=== PATIENT | female | born 1935 | race Caucasian/White ===

== ENCOUNTER 2023-01-10 17:23 | Emergency (ER) | payer MEDICARE, OTHER, SELFPAY ==
[2023-01-10] VITALS (12 sets, daily range): BP systolic 114–155; BP diastolic 46–99; PULSE 87–103; RESP 17–23; TEMP 37–37.9; O2SAT 95–99
--- NOTE | ~2023-01-10 | XR_ITS ---
EXAMINATION: XR chest 2V DATE: 01/10/2023 17:56 INDICATION: Fever and weakness TECHNIQUE: frontal and lateral views of the chest were obtained. COMPARISON: None FINDINGS: Focal airspace opacity in the left midlung zone in the left upper lobe abutting the major fissure whi ch concerning for pneumonia. No other airspace opacities, pulmonary edema, pleural effusion or pneumo thorax. The cardiomediastinal silhouette is normal. Mild to moderate thoracic spondylosis. IMPRESSION: 1. Left upper lobe pneumonia. Reviewed, dictated and finalized at location A. OMER SUPPORT ASSOCIATE
--- NOTE | 2023-01-10 17:29 | ECG_ITS ---
Measurements Intervals [place] Rate: 96 P: 68 FL: 161 QRS: -45 QRSD: 109 T: 79 QT: 323 QTc: 410 Interpretive Statements SINUS RHYTHM ATRIAL COUPLET LEFT ANTERIOR FASCICULAR BLOCK CANNOT RULE OUT SEPTAL INFARCT, AGE INDETERMINATE ABNORMAL ECG NO PREVIOUS ECG AVAILABLE FOR COMPARISON Electronically Signed On 01-10-2023 18:58:58 STRATEGIC INTELLIGENCE OFFICER by Baltazar Ga D.O.
[2023-01-10 17:52] LABS: Basophils Percent Auto 0.3 % (0.2-1.2); Eosinophils Percent Auto 0.1 % (0-4.4); Hematocrit 34.9 % (37.0-47.0); Hemoglobin 11.1 g/dL (12.0-15.0); Immature Granulocyte Percent A 0.7 % (0-0.5); Lymphocytes Absolute Auto 2.11 K/mm3 (0.9-3.2); Mean Corpuscular HGB Conc 31.8 g/dl (32-36); Mean Corpuscular Hemoglobin 29.7 pg (26-34); Mean Corpuscular Volume 93.3 fl (80-100); Mean Platelet Volume 9.3 fl (7.4-10.4); Monocytes Percent Auto 6.8 % (2.6-8.5); Neutrophils Absolute Auto 10.9 K/mm3 (1.3-6.7); Neutrophils Percent Auto 77.1 % (45.5-73.1); Platelet Count Result 292 k/mm3 (150-375); Red Blood Count 3.74 M/mm3 (4.2-5.4); Red Cell Distribution Width 14.1 % (11.5-14.5); White Blood Count 14.1 K/mm3 (4.5-10.0)
[2023-01-10 18:02] LABS: Alanine Aminotransferase 24 U/L (6-35); Alkaline Phosphatase 90 U/L (38-126); Anion Gap 9 mmol/L (8-16); Aspartate Amino Transferase 32 U/L (14-36); Bilirubin,Total 1.3 mg/dL (0.2-1.3); Blood Urea Nitrogen 15 mg/dL (7-17); Calcium 8.9 mg/dL (8.4-10.2); Carbon Dioxide 26 mmol/L (22-30); Chloride 100 mmol/L (98-107); Estimated CRCL calculation 35 ml/min; Estimated Glomerular Filt Rate > 60; Glucose 108 mg/dL (65-110); Potassium 4.1 mmol/L (3.4-5.0); Sodium 135 mmol/L (137-145)
--- NOTE | 2023-01-10 19:10 | ECG_ITS ---
Measurements Intervals [place] Rate: 100 P: 72 [place]: 158 QRS: -46 QRSD: 111 T: 82 QT: 328 QTc: 424 Interpretive Statements SINUS TACHYCARDIA VENTRICULAR PREMATURE COMPLEXES INCOMPLETE RIGHT BUNDLE BRANCH BLOCK LEFT ANTERIOR FASCICULAR BLOCK CANNOT RULE OUT SEPTAL INFARCT, AGE INDETERMINATE BASELINE ARTIFACT- I, II, AVR ABNORMAL ECG COMPARED TO ECG 01/10/2023 17:39:43 SINUS TACHYCARDIA NOW PRESENT Electronically Signed On 01-11-2023 8:27:24 POSTDOCTORAL FELLOW by Baltazar Ga D.O.
[2023-01-10 20:25] LABS: Appearance Urine Cloudy (Clear); Bacteria Urine 4+ /hpf; Bilirubin Urine Negative (Negative); Blood Urine 1+ (Negative); Color Urine Yellow (Yellow); Glucose Urine UA Negative (Negative); Ketones Urine Trace mg/dL (Negative); Leukocyte Esterase Ur 1+ LEU/UL (Negative); Nitrate Urine Negative (Negative); Non Pathogenic Casts 0-2; Protein Urine 1+ mg/dL (Negative); Specific Grav Ur 1.021 (1.001-1.035); Squamous Epithelial Cell Urine Occasional /hpf (Few); WBC Urine 21-50 /hpf; pH Urine 6.5 (5.0-9.0)
[2023-01-10 20:30] LABS: Add Urine Microscopic? YES
[2023-01-10 22:21] LABS: Influenza A QL RT-PCR Negative (Negative); Influenza B QL RT-PCR Negative (Negative); SARS-CoV-2 RNA PCR Negative (Negative)
--- NOTE | 2023-01-10 22:23 | ED.GENADULT ---
HPI - General Adult General Chief complaint: Weakness Stated complaint: weak, shaky, swollen ankles Time Seen by Provider: 01/10/23 20:53 History of Present Illness HPI narrative: Patient is an 87-year-old female who presents to the emergency department this afternoon accompanied by family members due to generalized weakness. Patient also states that she has been having some URI symptoms, including a cough, shortness of breath, and a sore throat. Patient also admits that she has been having a low grade fever at home, she denies any exposure to sick contacts or COVID as far as she is aware. Patient also denies any urinary symptoms including dysuria or hematuria. Patient also denies any chest pain, nausea, vomiting, abdominal pain, constipation, diarrhea, melena or hematochezia. She also denies any headaches, dizziness, lightheadedness, blurry visions, focal weakness, numbness and or tingling. There are no other modifying, alleviating, or precipitating factors at this time. Related Data Allergies Allergy/AdvReac Type Severity Reaction Status Date / Time No Known Allergies Allergy Verified 01/10/23 17:24 Review of Systems Review of Systems: All systems are reviewed and are negative unless stated otherwise in the HPI. Exam Narrative: General: Alert, awake, afebrile, in no acute distress. HEENT: PERRL, no rhinorrhea, no post nasal drip, oropharynx clear. Neck: Trachea midline, no JVD, no lymphadenopathy. Cardiovascular: Tachycardic with regular rhythm, no murmurs, rubs or gallops, no peripheral edema. Respiratory: Clear to auscultation bilaterally, no tachypnea, no wheezing, no rhonchi, no rubs, no respiratory distress. Abdomen: Soft, nontender, nondistended, no rebound, no guarding, no peritoneal signs. Musculoskeletal: No joint swelling or deformity, normal muscle tone. Skin: No rashes or petechia, no signs of infection. Psychiatric: Alert and oriented, normal behavior and judgment for situation. Neurological: Alert and oriented to person, place, and time. Follows all commands. No focal deficits, speech is clear and fluent. Course Vital Signs Vital signs: Vital Signs Temperature 100.2 F H 01/10/23 17:27 Pulse Rate 103 H 01/10/23 17:27 Respiratory Rate 20 01/10/23 17:27 Blood Pressure 155/59 H 01/10/23 17:27 Pulse Oximetry 99 01/10/23 17:27 Oxygen Delivery Room Air 01/10/23 17:27 Temperature 98.6 F 01/10/23 20:52 Pulse Rate 87 01/10/23 23:02 Respiratory Rate 20 01/10/23 23:02 Blood Pressure 133/67 01/10/23 23:02 Pulse Oximetry 98 01/10/23 23:02 Oxygen Delivery Room Air 01/10/23 20:52 Medical Decision Making MDM Narrative Medical decision making narrative: The patient was evaluated by myself in the emergency department. History is obtained from patient who is an independent historian and physical exam was performed. External medical records were reviewed at this time. IV was established and pertinent tests were ordered. EKG was obtained which revealed SR at a rate of 96bpm. No ST changes, T wave inversions or evidence concerning of acute ischemia. EKG was independently interpreted by me and is currently pending official cardiology read. Laboratory results obtained revealing No acute process. Imaging studies obtained included a CXR which was independently interpreted by me revealing a ALPHONSE pneumonia, which is pending final radiology interpretation. Differential diagnosis considerations include pneumonia, COVID infection, viral syndrome, and urinary tract infection. I have evaluated and discussed social determinants of health with the patient that could potentially impact subsequent diagnosis and treatment plans. On repeat assessment of the patient, reevaluation revealed that the patient is doing well and is in no acute distress. Patient symptoms have improved since she arrived to our emergency department. Repeat vital signs were all reviewed and noted to be sta
== END 2023-01-10 23:11 | disposition home or self-care (01) ==
PROVIDERS: Student in an Organized Health Care Education/Training Program; Emergency Provider Emergency Medicine
DX: J18.1 Lobar pneumonia, unspecified organism (principal); N39.0 Urinary tract infection, site not specified; Z20.822 Contact with and (suspected) exposure to COVID-19; R94.31 Abnormal electrocardiogram [ECG] [EKG]; R00.8 Other abnormalities of heart beat; I44.4 Left anterior fascicular block
CPT/HCPCS: 36415; 71046; 80053; 81001; 85025; 87077; 87086; 87186; 87636; 93005; 99283

== ENCOUNTER 2023-01-29 15:05 | Emergency (ER) | payer MEDICARE, OTHER, SELFPAY ==
[2023-01-29] VITALS (20 sets, daily range): BP systolic 108–163; BP diastolic 58–85; PULSE 78–120; RESP 12–23; TEMP 36.5–36.8; O2SAT 96–100
--- NOTE | ~2023-01-29 | CT_ITS ---
EXAMINATION: CT abdomen pelvis w con DATE: 01/29/2023 17:42 INDICATION: RUQ/epigastric pain, N/V TECHNIQUE: Computed tomography (CT) of the abdomen and pelvis was performed with 100 mL Omnipaque-350 intravenous contrast. Automated exposure control and iterative reconstruction technique were employe d. The dose-length product was 297.85 mGy-cm. COMPARISON: None. FINDINGS: Lower thorax: Coronary artery calcifications. Small volume pericardial fluid. Senescent changes in th e lungs. Granulomatous calcification. Insert before no small mild distal esophageal and gastric wall edema. Liver: Normal. Biliary/Gallbladder: Gallbladder is normal. No bile duct dilation. Pancreas: No mass or duct dilation. Spleen: Normal. Adrenals:No mass. Kidneys: No suspicious mass, obstructing stone, or hydronephrosis. Simple right lower pole cyst. GI tract: No small or large bowel dilation. Date is not dilated. Mild wall hyperemia. Small volume periappendiceal fluid. Diverticulosis without diverticulitis. Mesentery/Peritoneum: No ascites, mass, or free air. Retroperitoneum: No mass. Atherosclerotic abdominal aortic and/or arterial calcifications. Pelvis: Absent uterus. Incompletely distended urinary bladder. Small volume free pelvic fluid. Soft Tissues: Soft tissues and body wall unremarkable. Bones: No acute osseous finding. IMPRESSION: Small pericardial effusion. Mild esophagitis/gastritis. Nondilated appendix, with mild mucosal hyperemia and small volume periappendiceal fluid, may reflect early acute appendicitis in the appropriate clinical context. Small volume ascites. Reviewed, dictated and finalized at location K. YARD TENDER IMPRESSION: Small pericardial effusion. Mild esophagitis/gastritis. Nondilated appendix, with mild mucosal hyperemia and small volume periappendice al fluid, may reflect early acute appendicitis in the appropriate clinical cont ext. Small volume ascites.
--- NOTE | 2023-01-29 16:40 | ECG_ITS ---
Measurements Intervals [place] Rate: 96 P: 71 MN: 174 QRS: -53 QRSD: 99 T: 77 QT: 336 QTc: 426 Interpretive Statements SINUS RHYTHM PATTERN CONSISTENT WITH PULMONARY DISEASE INCOMPLETE RIGHT BUNDLE BRANCH BLOCK [90+ ms QRS DURATION, TERMINAL R IN V1/V2, 40+ ms S IN I/aVL/V4/V5/V6] LEFT ANTERIOR FASCICULAR BLOCK [QRS AXIS <= -45, QR IN I, RS IN II] COMPARED TO ECG 01/10/2023 19:10:43 THE HEART RATE IS SLOWER Electronically Signed On 01-29-2023 20:23:20 MOTOR LODGE CLERK by Lily Love M.D.
--- NOTE | 2023-01-29 16:40 | ED.ABDPAIN ---
HPI - Abdominal Pain General Chief Complaint: Abdominal Pain <SANYA Latif Last Filed: 01/29/23 16:49> Stated Complaint: ABD PAIN,N/V <SANYA Latif Last Filed: 01/29/23 16:49> Time Seen by Provider: 01/29/23 20:47 <SANYA Latif Last Filed: 01/29/23 16:49> Source: patient <SANYA Latif Last Filed: 01/29/23 16:49> Mode of arrival: EMS <SANYA Latif Last Filed: 01/29/23 16:49> Limitations: no limitations <SANYA Latif Last Filed: 01/29/23 16:49> History of Present Illness HPI narrative: Patient is an 87 y/o female, with PMH of cholelithiasis, who presents to the ED via EMS with report of epigastric abdominal pain. Patient reports pain began on Saturday night and has progressively worsened since then. She developed nausea and vomiting today which prompted her presentation. She notes a large amount of bile-like emesis today. She has not tried anything for pain. Denies current nausea. Denies fevers, chest pain, shortness breath, diarrhea, constipation, urinary complaints. <SANYA Latif Last Filed: 01/29/23 16:49> Related Data Allergies/Adverse Reactions: Allergies Allergy/AdvReac Type Severity Reaction Status Date / Time No Known Allergies Allergy Verified 01/29/23 15:10 <SANYA Latif Last Filed: 01/29/23 16:49> Review of Systems Review of Systems: CONSTITUTIONAL: Denies fever, chills, or sweats. CARDIOVASCULAR: Denies chest pain. RESPIRATORY: Denies dyspnea. GASTROINTESTINAL: See HPI. GENITOURINARY: Denies dysuria or hematuria. MUSCULOSKELETAL: Denies back pain, joint pain, or myalgia. NEUROLOGIC: Denies headache, numbness, or weakness. <SANYA Latif Last Filed: 01/29/23 16:49> All systems reviewed & are unremarkable except as noted in HPI and below <Gillian Pedraza PA-C - Last Filed: 01/29/23 16:49> Exam Narrative: GENERAL: Elderly, frail, non-toxic, in no acute distress. HEAD: Normocephalic, atraumatic. NECK: Supple. No adenopathy, no masses. RESPIRATORY: Airway patent, respirations nonlabored. Clear to auscultation bilaterally, no rales, rhonchi, wheezing. CARDIOVASCULAR: Regular rate and rhythm without murmurs, rubs, or gallops. Radial pulses 2+ and equal bilaterally. ABDOMINAL: Soft, focal tenderness in epigastric region, right upper quadrant, nondistended, no hepatosplenomegaly. Normoactive BS. MUSCULOSKELETAL: Moves all extremities. No gross deformities. SKIN: Warm, dry, normal color. No rashes. NEURO: A&O X3. Speech clear. Cranial nerves II-XII grossly intact. No ataxic movements. PSYCHIATRIC: Appropriate mood and affect. Normal interaction. <Gillian Pedraza PA-C - Last Filed: 01/29/23 16:49> GENERAL: Elderly, frail, non-toxic, in no acute distress. HEAD: Normocephalic, atraumatic. NECK: Supple. No adenopathy, no masses. RESPIRATORY: Airway patent, respirations nonlabored. Clear to auscultation bilaterally, no rales, rhonchi, wheezing. CARDIOVASCULAR: Regular rate and rhythm without murmurs, rubs, or gallops. Radial pulses 2+ and equal bilaterally. ABDOMINAL: Soft, focal tenderness in epigastric region, left upper quadrant, nondistended MUSCULOSKELETAL: Moves all extremities. No gross deformities. SKIN: Warm, dry, normal color. No rashes. NEURO: A&O X3. Speech clear. Cranial nerves II-XII grossly intact. No ataxic movements. PSYCHIATRIC: Appropriate mood and affect. Normal interaction. <Cathy Sanon MD - Last Filed: 02/05/23 17:01> Course Vital Signs Vital signs: Vital Signs Temperature 97.7 F 01/29/23 15:07 Pulse Rate 97 01/29/23 15:07 Respiratory Rate 20 01/29/23 15:07 Blood Pressure 141/68 H 01/29/23 15:07 Pulse Oximetry 100 01/29/23 15:07 Oxygen Delivery Room Air 01/29/23 15:07 Temperature 98.2 F 01/29/23 20:52 Pulse Rate 86 01/30/23 00:47
[2023-01-29 17:04] LABS: Basophils Absolute Auto 0.1 K/mm3 (0.0-0.1); Basophils Percent Auto 0.4 % (0.2-1.2); Eosinophils Percent Auto 0.3 % (0-4.4); Hematocrit 38.1 % (37.0-47.0); Hemoglobin 12.3 g/dL (12.0-15.0); Immature Granulocyte Absolute 0.05 K/mm3 (0.00-0.031); Immature Granulocyte Percent A 0.4 % (0-0.5); Lymphocytes Absolute Auto 2.38 K/mm3 (0.9-3.2); Mean Corpuscular HGB Conc 32.3 g/dl (32-36); Mean Corpuscular Hemoglobin 29.9 pg (26-34); Mean Corpuscular Volume 92.5 fl (80-100); Mean Platelet Volume 9.5 fl (7.4-10.4); Monocytes Absolute Auto 0.4 K/mm3 (0.1-0.6); Monocytes Percent Auto 3.2 % (2.6-8.5); Neutrophils Absolute Auto 8.5 K/mm3 (1.3-6.7); Neutrophils Percent Auto 74.7 % (45.5-73.1); Platelet Count Result 385 k/mm3 (150-375); Red Blood Count 4.12 M/mm3 (4.2-5.4); Red Cell Distribution Width 13.9 % (11.5-14.5); White Blood Count 11.3 K/mm3 (4.5-10.0)
[2023-01-29 17:13] LABS: Alanine Aminotransferase 15 U/L (6-35); Albumin Level 4.3 g/dL (3.5-5.1); Alkaline Phosphatase 89 U/L (38-126); Anion Gap 8 mmol/L (8-16); Aspartate Amino Transferase 29 U/L (14-36); Bilirubin,Total 1.1 mg/dL (0.2-1.3); Blood Urea Nitrogen 19 mg/dL (7-17); Carbon Dioxide 25 mmol/L (22-30); Chloride 104 mmol/L (98-107); Estimated CRCL calculation 36 ml/min; Estimated Glomerular Filt Rate 60; Glucose 112 mg/dL (65-110); Lipase 194 U/L (23-300); Potassium 4.3 mmol/L (3.4-5.0); Sodium 137 mmol/L (137-145)
[2023-01-29 17:25] LABS: Troponin I < 0.012 ng/mL (0.000-0.034)
[2023-01-29 21:19] LABS: Appearance Urine Clear (Clear); Bacteria Urine None Seen /hpf; Bilirubin Urine Negative (Negative); Blood Urine Negative (Negative); Color Urine Yellow (Yellow); Glucose Urine UA Negative (Negative); Ketones Urine Trace mg/dL (Negative); Leukocyte Esterase Ur Negative LEU/UL (Negative); Need Manual Microscopic Reviewed; Nitrate Urine Negative (Negative); Non Pathogenic Casts 0-2; Protein Urine Trace mg/dL (Negative); Squamous Epithelial Cell Urine Occasional /hpf (Few); Urobilinogen Urine 0.2 mg/dL (<2.0); WBC Urine 0-5 /hpf; pH Urine 5.5 (5.0-9.0)
[2023-01-29 21:20] LABS: Add Urine Microscopic? YES; Specific Grav Ur >= 1.099 (1.001-1.035)
[2023-01-29] MEDS: SODIUM CHLORIDE 0.9% IV 1,000 ML 999 ML IV CONT (23:02)
[2023-01-29] MEDS: ONDANSETRON INJ 4 MG/2 ML VIAL IV PUSH (23:03)
[2023-01-29] MEDS: FAMOTIDINE 20 MG/2 ML VIAL IV PUSH (23:03)
[2023-01-29] MEDS: BELLADONNA ALK/PHENOB ELIX 10 ML, MAG HYDROX/ALUMINUM HYD/SIMETH 30 ML, LIDOCAINE HCL 2... PO (23:19)
[2023-01-30] VITALS (8 sets, daily range): BP systolic 130–137; BP diastolic 53–85; PULSE 85–100; RESP 15–22; O2SAT 92–99
== END 2023-01-30 00:56 | disposition home or self-care (01) ==
PROVIDERS: Physician Assistant; Emergency Provider Emergency Medicine
DX: K20.90 Esophagitis, unspecified without bleeding (principal); K29.70 Gastritis, unspecified, without bleeding; R94.31 Abnormal electrocardiogram [ECG] [EKG]; I45.2 Bifascicular block
CPT/HCPCS: 36415; 74177; 80053; 81001; 83690; 84484; 85025; 93005; 96361; 96374; 96375; 99284; A9270; J2405; J7030; Q9967

== ENCOUNTER 2024-02-03 12:35 | Emergency (ER) | payer MEDICARE, OTHER, SELFPAY ==
[2024-02-03] VITALS (9 sets, daily range): BP systolic 146–185; BP diastolic 58–95; PULSE 78–106; RESP 14–19; TEMP 36.4–36.5; O2SAT 94–100
--- NOTE | ~2024-02-03 | CT_ITS ---
EXAMINATION: CT abdomen pelvis w con DATE: 02/03/2024 16:20 INDICATION: Abdominal pain. Urinary tract infection. TECHNIQUE: Computed tomography (CT) of the abdomen and pelvis was performed with 100 mL Omnipaque-350 intravenous contrast. Automated exposure control and iterative reconstruction technique were employe d. The dose-length product was 266.40 mGy-cm. COMPARISON: 01/29/2023 FINDINGS: Lung bases are clear. No pleural effusion. Heart size is normal. Persistent small pericardial effusio n. Small sliding-type hiatal hernia. Liver, gallbladder, spleen, pancreas, bilateral adrenal glands and left kidney are normal. 2.2 cm cyst at the lower pole of the right kidney. Normal retrocecal appendix . Extensive diverticulosis without adjacent from trace stranding to suggest diverticulitis. No bowel obstruction. There is mild diffuse bladder wall thickening with mucosal hyperemia suspicious for cyst itis. The uterus is not identified and has likely been surgically resected. No free intraperitoneal g as or fluid. Bilateral adnexa are unremarkable. No pathologically enlarged abdominal or pelvic lympha denopathy. Severe lumbar spondylosis. IMPRESSION: 1. Mucosal hyperemia and mild wall thickening of the bladder suspicious for cystitis. 2. Chronic small pericardial effusion. 3. Small sliding-type hiatal hernia. 4. Extensive diverticulosis. Reviewed, dictated and finalized at location A. WARE DEVELOPMENT LEADER IMPRESSION: 1. Mucosal hyperemia and mild wall thickening of the bladder suspicious for cys titis. 2. Chronic small pericardial effusion. 3. Small sliding-type hiatal hernia. 4. Extensive diverticulosis.
[2024-02-03 13:02] LABS: Add Urine Microscopic? YES; Appearance Urine Cloudy (Clear); Bacteria Urine Rare /hpf; Bilirubin Urine Negative (Negative); Blood Urine 3+ (Negative); Color Urine Yellow (Yellow); Glucose Urine UA Negative (Negative); Ketones Urine Negative (Negative); Leukocyte Esterase Ur 3+ LEU/UL (Negative); Nitrate Urine Negative (Negative); Non Pathogenic Casts 0-2; Protein Urine 2+ mg/dL (Negative); Specific Grav Ur 1.008 (1.001-1.035); Squamous Epithelial Cell Urine None Seen /hpf (Few); Urobilinogen Urine 0.2 mg/dL (<2.0); WBC Urine >100 /hpf (0-3); pH Urine 6.5 (5.0-9.0)
[2024-02-03 16:13] LABS: Basophils Absolute Auto 0.1 K/mm3 (0.0-0.1); Basophils Percent Auto 0.6 % (0.2-1.2); Eosinophils Absolute Auto 0.1 K/mm3 (0-0.3); Eosinophils Percent Auto 0.9 % (0-4.4); Hematocrit 33.9 % (37.0-47.0); Hemoglobin 11.1 g/dL (12.0-15.0); Immature Granulocyte Absolute 0.02 K/mm3 (0.00-0.031); Immature Granulocyte Percent A 0.3 % (0-0.5); Lymphocytes Absolute Auto 2.19 K/mm3 (0.9-3.2); Lymphocytes Percent Auto 28.3 % (18.3-44.2); Mean Corpuscular HGB Conc 32.7 g/dl (32-36); Mean Corpuscular Hemoglobin 30.4 pg (26-34); Mean Corpuscular Volume 92.9 fl (80-100); Mean Platelet Volume 9.1 fl (7.4-10.4); Monocytes Absolute Auto 0.4 K/mm3 (0.1-0.6); Monocytes Percent Auto 4.6 % (2.6-8.5); Neutrophils Absolute Auto 5.1 K/mm3 (1.3-6.7); Neutrophils Percent Auto 65.3 % (45.5-73.1); Platelet Count Result 299 k/mm3 (150-375); Red Blood Count 3.65 M/mm3 (4.2-5.4); Red Cell Distribution Width 13.5 % (11.5-14.5); White Blood Count 7.8 K/mm3 (4.5-10.0)
[2024-02-03 16:17] LABS: Estimated CRCL calculation 28 ml/min; Estimated Glomerular Filt Rate 53
[2024-02-03 16:23] LABS: Alanine Aminotransferase 15 U/L (6-35); Alkaline Phosphatase 95 U/L (38-126); Anion Gap 4 mmol/L (4-12); Aspartate Amino Transferase 29 U/L (14-36); Bilirubin,Total 0.8 mg/dL (0.2-1.3); Blood Urea Nitrogen 23 mg/dL (7-17); Calcium 9.3 mg/dL (8.4-10.2); Carbon Dioxide 28 mmol/L (22-30); Chloride 105 mmol/L (98-107); Estimated CRCL calculation 31 ml/min; Estimated Glomerular Filt Rate 59; Glucose 96 mg/dL (65-110); Lipase 123 U/L (23-300); Potassium 3.9 mmol/L (3.4-5.0); Sodium 137 mmol/L (137-145)
--- NOTE | 2024-02-03 16:29 | ECG_ITS ---
Test Date: 2024-02-03 16:32:31 Measurements Intervals [place] Rate: 80 P: 71 [place]: 198 QRS: -25 QRSD: 117 T: 81 QT: 388 QTc: 450 Interpretive Statements SINUS RHYTHM BORDERLINE LEFT AXIS DEVIATION [QRS AXIS < -20] MODERATE INTRAVENTRICULAR CONDUCTION DELAY [110+ ms QRS DURATION] No previous ECG available for comparison Electronically Signed On 02-04-2024 14:47:31 VENETIAN BLIND TAPE CUTTER by Leann Hall M.D.
[2024-02-03 16:59] LABS: Troponin I < 0.012 ng/mL (0.000-0.034)
--- NOTE | 2024-02-03 17:14 | ED_ITS ---
HPI - Abdominal Pain General Chief Complaint: Abdominal Pain Stated Complaint: abd pain Time Seen by Provider: 02/03/24 15:41 History of Present Illness HPI narrative: 88-year-old female with a past medical history including previous urinary tract infections. Today patient presents to the emergency department chief complaint of urinary complaints such as burning with urination, frequency and urgency as well as significant pain and pressure in her lower abdomen. States it feels lik e her previous infections but to a higher degree. Symptoms were going on for last 1-2 days. No associated fevers, chills, nausea, vomiting, chest pain, shortness a breath. She was otherwise in her normal state of health. No recent antibiotic use, no recent hospitalization illnesses otherwise. Denies any vaginal bleeding or discharge. Related Data Allergies Allergy/AdvReac Type Severity Reaction Status Date / Time No Known Allergies Allergy Verified 02/03/24 12:50 Review of Systems Review of Systems: As reviewed above in HPI Exam Narrative: GENERAL: [Well-appearing, well-nourished, and in no acute distress.] HEAD: [Normocephalic, atraumatic.] EYES: [PERRLA and EOMI.] ENT: Nares clear, no rhinorrhea or epistaxis. Mucous membranes moist. NECK: Supple. CHEST: [Clear to auscultation. No respiratory distress.] HEART: [Regular rate and rhythm]. No murmur heard. [Normal peripheral pulses.] ABDOMEN: [Soft, nondistended], [nontender], [No rigidity or guarding] EXTREMITIES: Normal range of motion. [No edema.] SKIN: Warm, dry, no rash. NEURO: [No focal deficits]. Alert and oriented [x3.] PSYCH: [Normal mood and affect.] Course Vital Signs Vital signs: Vital Signs Temperature 36.5 C 02/03/24 12:52 Pulse Rate 91 02/03/24 12:52 Respiratory Rate 19 02/03/24 12:52 Blood Pressure 153/95 H 02/03/24 12:52 Pulse Oximetry 98 02/03/24 12:52 Oxygen Delivery Room Air 02/03/24 12:52 Temperature 36.4 C 02/03/24 15:29 Pulse Rate 106 H 02/03/24 16:30 Respiratory Rate 19 02/03/24 16:30 Blood Pressure 153/69 H 02/03/24 16:30 Pulse Oximetry 100 02/03/24 16:30 Oxygen Delivery Room Air 02/03/24 12:52 MDM - Abdominal Pain MDM Narrative Medical decision making narrative: 88-year-old female presenting with urinary complaints for last 2 days. She describes burning with urination, frequency, urgency lower abdominal pelvic fullness without any vaginal bleeding or vaginal discharge. Her vital signs reassuring without any significant blood pressure elevations, tachycardia, hypoxia and fever or chills, saturating 98% on room air. She has reassuring examination with a soft nontender nondistended abdomen, no CVA tenderness, no signs of peritonitis. Clear breath sounds throughout. Considerations at this time includes cystitis, urinary tract infection, pyelonephritis, upper urinary tract infection, less likely kidney stones or intra-abdominal pathology such as appendicitis or diverticulitis. Will obtain laboratory studies including a CBC, CMP, urinalysis, troponin, EKG and CT scan of the abdomen pelvis with IV cont rast. She was provided combination of pain relief including morphine, Toradol. lab studies studies are reassuring with normal electrolyte profile, normal renal function panel, normal hepatic function panel, negative troponin, negative lipase. EKG was reassuring without any ischemic evidence or ectopy. urinalysis shows red blood cells, white blood cells, 3+ leukocyte esterase, bacteria. imaging studies were independently reviewed also interpreted by radiology. There is hyperemia and wall thickening of the bladder suspicious for cystitis especially combined with her urinary tract infection signs on the urinalysis. There is a chronic small pericardial effusion, small sliding-type hiatal hernia and extensive diverticulosis without diverticulitis. Patient was re-evaluated with improvement her pain. She was given a dose of Rocephin IV at this time and will be sent home with a course of Bactrim twice daily for the next week to cover for urinary tract infection symptoms and cystitis. She was encouraged to follow-up with her primary care provider on outpatient basis or return if she has any worsening pain, development of nauseousness, back pain, fever, chills or any other concerning signs or symptoms and she expressed understanding of this as well as the family member at bedside. Stable for discharge at this time. Medical Records Attestation: I reviewed the patient's medical records. Lab Data Attestation: I reviewed the patient's lab results. 02/03/24 16:06 02/03/24 16:14 Labs: Lab Results 02/03/24 02/03/24 02/03/24 Range/Units 12:51 16:05 16:06 WBC 7.8 (4.5-10.0) K/mm3 RBC 3.65 L (4.2-5.4) M/mm3 Hgb 11.1 L (12.0-15.0) g/dL Hct 33.9 L (37.0-47.0) % MCV 92.9 (80-100) fl MCH 30.4 (26-34) pg MCHC 32.7 (32-36) g/dl RDW 13.5 (11.5-14.5) % Plt Count 299 (150-375) k/mm3 MPV 9.1 (7.4-10.4) fl Immature Gran % (Auto) 0.3 (0-0.5) % Neut % (Auto) 65.3 (45.5-73.1) % Lymph % (Auto) 28.3 (18.3-44.2) % [place] % (Auto) 4.6 (2.6-8.5) % Eos % (Auto) 0.9 (0-4.4) % Baso % (Auto) 0.6 (0.2-1.2) % Lymph # (Auto) 2.19 (0.9-3.2) K/mm3 [place] # (Auto) 0.4 (0.1-0.6) K/mm3 Eos # (Auto) 0.1 (0-0.3) K/mm3 Baso # (Auto) 0.1 (0.0-0.1) K/mm3 Abs Immat Gran (auto) 0.02 (0.00-0.031) K/mm3 Absolute Neuts (auto) 5.1 (1.3-6.7) K/mm3 Absolute Nucleated RBC 0.000 (0.0-0.012) K/mm3 Nucleated RBC % 0.0 (0.0-0.2) % Sodium 137 (137-145) mmol/L Potassium 3.9 (3.4-5.0) mmol/L Chloride 105 (98-107) mmol/L Carbon Dioxide 28 (22-30) mmol/L Anion Gap 4 (4-12) mmol/L BUN 23 H (7-17) mg/dL Creatinine 0.90 (0.7-1.0) mg/dL Estim Creat Clear Calc 31 ml/min Estimated GFR 59 (59 - ) Glucose 96 (65-110) mg/dL Calcium 9.3 (8.4-10.2) mg/dL Total Bilirubin 0.8 (0.2-1.3) mg/dL AST 29 (14-36) U/L ALT 15 (6-35) U/L Alkaline Phosphatase 95 (38-126) U/L Troponin I < 0.012 (0.000-0.034) ng/mL Total Protein 7.0 (6.3-8.2) g/dL Albumin 4.0 (3.5-5.1) g/dL Lipase 123 (23-300) U/L Urine Color Yellow (Yellow) Urine Appearance Cloudy H (Clear) Urine pH 6.5 (5.0-9.0) Ur Specific [place] 1.008 (1.001-1.035) Urine Protein 2+ H (Negative) mg/dL Urine Glucose (UA) Negative (Negative) mg/dL Urine Ketones Negative (Negative) mg/dL Ur Blood (Man) 3+ H (Negative) Urine Nitrate Negative (Negative) Urine Bilirubin Negative (Negative) Urine Urobilinogen 0.2 (<2.0) mg/dL Leukocyte Esterase Rfl 3+ H (Negative) DAVID/UL Urine RBC 6-10 H (0-2) /hpf Urine WBC >100 H (0-3) /hpf Ur Squamous Epith Cells None seen (Few) /hpf Urine Bacteria Rare /hpf Urine Casts 0-2 02/03/24 Range/Units 16:14 WBC (4.5-10.0) K/mm3 RBC (4.2-5.4) M/mm3 Hgb (12.0-15.0) g/dL Hct (37.0-47.0) % MCV (80-100) fl MCH (26-34) pg MCHC (32-36) g/dl RDW (11.5-14.5) % Plt Count (150-375) k/mm3 MPV (7.4-10.4) fl Immature Gran % (Auto) (0-0.5) % Neut % (Auto) (45.5-73.1) % Lymph % (Auto) (18.3-44.2) % [place] % (Auto) (2.6-8.5) % Eos % (Auto) (0-4.4) % Baso % (Auto) (0.2-1.2) % Lymph # (Auto) (0.9-3.2) K/mm3 [place] # (Auto) (0.1-0.6) K/mm3 Eos # (Auto) (0-0.3) K/mm3 Baso # (Auto) (0.0-0.1) K/mm3 Abs Immat Gran (auto) (0.00-0.031) K/mm3 Absolute Neuts (auto) (1.3-6.7) K/mm3 Absolute Nucleated RBC (0.0-0.012) K/mm3 Nucleated RBC % (0.0-0.2) % Sodium (137-145) mmol/L Potassium (3.4-5.0) mmol/L Chloride (98-107) mmol/L Carbon Dioxide (22-30) mmol/L Anion Gap (4-12) mmol/L BUN (7-17) mg/dL Creatinine 1.00 (0.7-1.0) mg/dL Estim Creat Clear Calc 28 ml/min Estimated GFR 53 L (59 - ) Glucose (65-110) mg/dL Calcium (8.4-10.2) mg/dL Total Bilirubin (0.2-1.3) mg/dL AST (14-36) U/L ALT (6-35) U/L Alkaline Phosphatase (38-126) U/L Troponin I (0.000-0.034) ng/mL Total Protein (6.3-8.2) g/dL Albumin (3.5-5.1) g/dL Lipase (23-300) U/L Urine Color (Yellow) Urine Appearance (Clear) Urine pH (5.0-9.0) Ur Specific [place] (1.001-1.035) Urine Protein (Negative) mg/dL Urine Glucose (UA) (Negative) mg/dL Urine Ketones (Negative) mg/dL Ur Blood (Man) (Negative) Urine Nitrate (Negative) Urine Bilirubin (Negative) Urine Urobilinogen (<2.0) mg/dL Leukocyte Esterase Rfl (Negative) DAVID/UL Urine RBC (0-2) /hpf Urine WBC (0-3) /hpf Ur Squamous Epith Cells (Few) /hpf Urine Bacteria /hpf Urine Casts Imaging Data Attestation: I personally reviewed and interpreted this imaging study as follows: My impression: Impressions Abdomen/Pelvis CT 02/03/24 16:23 IMPRESSION: 1. Mucosal hyperemia and mild wall thickening of the bladder suspicious for cystitis. 2. Chronic small pericardial effusion. 3. Small sliding-type hiatal hernia. 4. Extensive diverticulosis. Radiologist's impression: ITS Impressions Abdomen/Pelvis CT 02/03/24 16:23 IMPRESSION: 1. Mucosal hyperemia and mild wall thickening of the bladder suspicious for cystitis. 2. Chronic small pericardial effusion. 3. Small sliding-type hiatal hernia. 4. Extensive diverticulosis. Discharge Plan Discharge Clinical Impression: Cystitis, Acute UTI Patient Disposition: Home, Self-Care Condition: Stable Instructions: Antibiotic Form, Urinary Tract Infection in Women (DC), Interstitial Cystitis (ED), Urinary Tract Infection in Older Adults (ED) Additional Instructions: Follow-up with your regular primary care provider and complete the antibiotic course as prescribed. Return with any new or worsening concerns at any time. Prescriptions: New sulfamethoxazole-trimethoprim [Bactrim DS] 800-160 mg tablet 1 tablet PO Q12H Qty: 14 0RF phenazopyridine 200 mg tablet 200 mg PO TID Qty: 6 0RF ketorolac 10 mg tablet 10 mg PO Q8H PRN (Reason: pain) 5 Days Qty: 20 0RF Rx Instructions: maximum total duration of 5 days from all oral, intranasal, or parenteral formulations No Action cefuroxime axetil 500 mg tablet 500 mg PO BID 5 Days Qty: 10 0RF doxycycline hyclate 100 mg capsule 100 mg PO BID 5 Days Qty: 10 0RF famotidine [Pepcid] 20 mg tablet 20 mg PO DAILY Qty: 30 0RF ondansetron 4 mg tablet,disintegrating 4 mg PO Q8H PRN (Reason: nausea and vomiting) Qty: 14 0RF Follow-up/Referrals: UNKNOWN,DOCTOR [Primary Care Provider] - Time of Disposition: 17:21
[2024-02-03] MEDS: KETOROLAC 15 MG/ML VIAL (*BKC) IV PUSH (17:19)
[2024-02-03] MEDS: MORPHINE SULFATE (*CRX) 2 MG/ML INJ IV PUSH (17:20)
[2024-02-03] MEDS: cefTRIAXone 2 GM/NS 100 ML 2 GM/100 ML BAG IVPB (17:20)
== END 2024-02-03 18:00 | disposition home or self-care (01) ==
PROVIDERS: Emergency Medicine; Emergency Provider Student in an Organized Health Care Education/Training Program
DX: N30.90 Cystitis, unspecified without hematuria (principal); K57.90 Diverticulosis of intestine, part unspecified, without perforation or abscess without bleeding; K44.9 Diaphragmatic hernia without obstruction or gangrene; I45.9 Conduction disorder, unspecified
CPT/HCPCS: 36415; 74177; 80053; 81001; 83690; 84484; 85025; 87077; 87086; 87186; 93005; 96365; 96375; 99284; J0696; J1885; J2270; Q9967